=== PATIENT | male | born 1970 | race Hispanic/Latino ===

== ENCOUNTER 2017-03-17 23:29 | Inpatient (IN) | payer MEDICARE, OTHER ==
[2017-03-18 00:32] LABS: BASO % 0.5 % (0.0-2.0); EOS # 0.1 K/uL (0.0-0.7); HEMATOCRIT 39.6 % (35.0-51.0); LYMPH # 2.2 K/uL (1.0-4.3); MEAN CELL VOLUME 82.1 fL (80.0-94.0); MEAN CORPUSCULAR HGB CONC 34.1 g/dL (33.0-37.0); MONO # 0.4 K/uL (0.0-0.8); MONO % 5.7 % (0.0-10.0); RED CELL DISTRIBUTION WIDTH 12.9 % (11.5-14.5); WHITE BLOOD COUNT 6.6 K/uL (4.8-10.8)
[2017-03-18 00:33] LABS: RBC URINE < 1 /hpf (0-3); URINE BILIRUBIN NEGATIVE (NEGATIVE); URINE BLOOD NEGATIVE (NEGATIVE); URINE COLOR Straw (YELLOW); URINE GLUCOSE (UA) 3+ mg/dL (Normal); URINE KETONE NEGATIVE (NEGATIVE); URINE LEUKOCYTE ESTERASE NEG Leu/uL (Negative); URINE PROTEIN NEGATIVE (NEGATIVE); URINE UROBILINOGEN NORMAL mg/dL (0.2-1.0); WBC URINE 1 /hpf (0-5)
[2017-03-18 00:45] LABS: CHLORIDE 89 mmol/L (98-107); POTASSIUM 4.3 mmol/L (3.6-5.2); SODIUM 131 mmol/L (132-148)
[2017-03-18 00:47] LABS: BILIRUBIN,TOTAL 0.5 mg/dL (0.2-1.3); CARBON DIOXIDE 27 mmol/L (22-30); GFR AFRICAN-AMERICAN > 60
[2017-03-18 00:48] LABS: ALB/GLOB RATIO 1.3 (1.0-2.1); ALKALINE PHOSPHATASE 107 U/L (38-126); ALT/SGPT 17 U/L (21-72); AST/SGOT 17 U/L (17-59); BLOOD UREA NITROGEN 14 mg/dL (9-20); CALCIUM 8.9 mg/dl (8.6-10.4); TOTAL PROTEIN 7.5 g/dL (6.3-8.3)
[2017-03-18 00:49] LABS: ALCOHOL SERUM < 10 mg/dl (0-10)
[2017-03-18 01:08] LABS: GLUCOSE,RANDOM 541 mg/dL (75-110)
[2017-03-18] MEDS ORDERED: Sodium Chloride 0.9% 1,000 ML IV ONE ×3 (01:15→04:40)
[2017-03-18] MEDS ORDERED: (Novolin R) Insulin Human Regular 100 units/ml vial IV ONE ×2 (01:16→03:46)
[2017-03-18] MEDS ORDERED: (Novolin R) Insulin Human Regular 100 units/ml vial ONE ×2 (01:27→03:57)
[2017-03-18] MEDS ORDERED: Sodium Chloride 0.9% 1,000 ML ONE ×3 (01:27→04:54)
--- NOTE | 2017-03-18 02:52 | C.PDOC ---
History Of Present Illness 47 year old male presents to the ER for detox from opiates. Patient is prescreened for detox, reports last use of pills was 2 days ago and last heroin use was earlier today. Patient has no physical complaint at this time. Time Seen by Provider: 03/18/17 00:03 Chief Complaint (Nursing): Psychiatric Evaluation History Per: Patient History/Exam Limitations: no limitations Onset/Duration Of Symptoms: Other (Asymptomatic) Suicide/Self Injury Attempted (Context): None Modifying Factor(s): Narcotics Severity: Moderate Past Medical History Reviewed: Historical Data, Nursing Documentation, Vital Signs Vital Signs: Last Vital Signs Temp 98.2 F 03/18/17 20:44 Pulse 74 03/18/17 22:06 Resp 18 03/18/17 20:44 BP 145/90 03/18/17 22:06 Pulse Ox 99 03/18/17 20:44 - Medical History PMH: Depression Surgical History: No Surg Hx - [facility] Procedures TETANUS TOXOID ADMINIST (06/22/02) Family History: States: No Known Family Hx - Social History Hx Alcohol Use: No Hx Substance Use: Yes - Immunization History Hx Tetanus Toxoid Vaccination: Yes (2014) Hx Influenza Vaccination: Yes (2015) Hx Pneumococcal Vaccination: No Review Of Systems Except As Marked, All Systems Reviewed And Found Negative. Constitutional: Negative for: Fever, Chills Cardiovascular: Negative for: Chest Pain, Palpitations Respiratory: Negative for: Cough, Shortness of Breath Gastrointestinal: Negative for: Nausea, Vomiting, Abdominal Pain Psych: Negative for: Suicidal ideation Physical Exam - Physical Exam Appears: Well, Non-toxic Skin: Normal Color, Warm, Dry Head: Normacephalic Eye(s): bilateral: Normal Inspection Oral Mucosa: Moist Cardiovascular: Rhythm Regular Respiratory: Normal Breath Sounds, No Rales, No Rhonchi, No Wheezing Gastrointestinal/Abdominal: Normal Exam, Bowel Sounds, Soft, No Tenderness Neurological/Psych: Oriented x3 ED Course And Treatment - Laboratory Results Result Diagrams: 03/18/17 00:28 03/18/17 00:28 O2 Sat by Pulse Oximetry: 97 (Room air) Pulse Ox Interpretation: Normal Progress Note: Blood work, UA, UDS ordered and reviewed. Patient's blood sugar noted to be elevated. He admits to history of diabetes in his family, does not take any diabetic medications himself. He deneis polyuria/polydipsia/weight loss/abdominal pain. IV NS boluses and IV insulin given. 5:15am- Patient's blood sugar steadily improving with fluids and insulin. He is medically cleared. Blood work shows no evidence of acidosis or dehydration . Recommend medicine consult during detox admisson, and placing patient on insulin sliding scale. Patient accepted by Dr. Muse for opiate detox admission. Critical Care Time - Critical Care Note Total Time (in mins): 35 Documented critical care: time excludes all time spent performing seperately billable procedures. Disposition - Disposition Disposition: HOSPITALIZED Disposition Time: 05:43 Condition: STABLE - Clinical Impression Clinical Impression: Opiate dependence, Hyperglycemia - Scribe Statement The provider has reviewed the documentation as recorded by the Scribe Lane Taylor All medical record entries made by the Scribe were at my direction and personally dictated by me. I have reviewed the chart and agree that the record accurately reflects my personal performance of the history, physical exam, medical decision making, and the department course for this patient. I have also personally directed, reviewed, and agree with the discharge instructions and disposition. Decision To Admit - Pt Status Changed To: Hospital Disposition Of: Inpatient - Admit Certification Admit to Inpatient:: After my assessment, the patient will require hospitalization for at least two midnights. This is because of the severity of symptoms shown, intensity of services needed, and/or the medical risk in this patient being treated as an outpatient. - InPatient: Physician Admission Certification: I certify that this patient requires 2 or more midnights of care for the following reason:: see notes - . Bed Request Type: Detox Admitting Physician: Rosa Muse Patient Diagnosis: Opiate dependence
[2017-03-18] MEDS ORDERED: Aluminum Hydroxide/Magnesium Hydroxide Susp (30 mL) PO PRN (08:09)
[2017-03-18] MEDS ORDERED: Benzocaine/Menthol (Cepacol) Lozenge PO PRN (08:09)
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
[2017-03-18] MEDS ORDERED: (Novolog) Insulin Aspart, Recombinant 100 u/ml 10 ml vial SC SCH (13:52)
[2017-03-18] MEDS: (Novolog) Insulin Aspart, Recombinant 100 u/ml 10 ml vial SC SCH ×2 (17:11→21:09)
[2017-03-18] MEDS: Insulin Detemir 100 units/ml Vial (Levemir) SC SCH (21:05)
[2017-03-18] MEDS ORDERED: Insulin Detemir 100 units/ml Vial (Levemir) SC SCH (22:00)
[2017-03-19] MEDS: (Novolog) Insulin Aspart, Recombinant 100 u/ml 10 ml vial SC SCH ×3 (08:25→17:34)
[2017-03-19 08:41] LABS: HEMATOCRIT 35.7 % (35.0-51.0); MEAN CELL VOLUME 81.3 fL (80.0-94.0); MEAN CORPUSCULAR HEMOGLOBIN 28.6 pg (27.0-31.0); MEAN CORPUSCULAR HGB CONC 35.1 g/dL (33.0-37.0); MEAN PLATELET VOLUME 9.4 fL (7.2-11.7); RED CELL DISTRIBUTION WIDTH 13.3 % (11.5-14.5); WHITE BLOOD COUNT 4.9 K/uL (4.8-10.8)
--- NOTE | 2017-03-19 08:53 | PCM.PYCHPN ---
Psychiatric Progress Note - Psychiatric Progress Note Patient seen today, length of contact: 16 min Patient Chief Complaint: I am experiencing withdrawal symptoms. Problems Identified/Issues Discussed: Patient seen and evaluated, chart reviewed and discussed with the nurse. The patient reports depressed and irritable mood but still reports withdrawal symptoms including shakes, anxiety, cramps, joints pains and sweating. Patient has something anxiety and denies any suicidal ideation or homicidal ideation. Patient is taking medications and denies any side effects. Supportive therapy and psychoeducation were given. Medication Change: Yes (Methadone taper, Start Zoloft) Medical Record Reviewed: Yes Mental Status Examination - Cognitive Function Orientation: Person, Place, Situation, Time Memory: Intact Attention: WNL Concentration: Poor Association: WNL Fund of Knowledge: Poor - Mood Mood: Depressed, Anxious - Affect Affect: Constricted, Depressed - Speech Speech: Soft - Formal Thought Process Formal Thought Process: No Impairment - Suicidal Ideation Suicidal Ideation: No - Homicidal Ideation Homicidal Ideation: No Goal/Treatment Plan - Goal/Treatment Plan Need for Continued Stay: Discharge may exacerbated symptoms, Severe functional impairment Progress Toward Problem(s) and Goals/Treatment Plan: Opioid use disorder severe CBT Psychoeducation Supportive therapy, individual therapy Use [place] for abstinence Opioid withdrawal CBT Psychoeducation Supportive therapy, individual therapy Clonidine when necessary Methadone taper Depressive disorder CBT Psychoeducation Supportive therapy, group therapy, individual therapy Neurontin 100 mg by mouth 3 times a day Trazodone 50 mg by mouth daily at bedtime Zoloft 50 mg PO Daily - Smoking Cessation Smoking Cessation Initiated: No
[2017-03-19 08:55] LABS: CHLORIDE 98 mmol/L (98-107); SODIUM 135 mmol/L (132-148)
[2017-03-19 08:57] LABS: AST/SGOT 16 U/L (17-59); BILIRUBIN,TOTAL 0.7 mg/dL (0.2-1.3); CARBON DIOXIDE 23 mmol/L (22-30); GFR AFRICAN-AMERICAN > 60
[2017-03-19 08:58] LABS: ALB/GLOB RATIO 1.2 (1.0-2.1); ALKALINE PHOSPHATASE 98 U/L (38-126); ALT/SGPT 19 U/L (21-72); BLOOD UREA NITROGEN 9 mg/dL (9-20); CALCIUM 8.6 mg/dl (8.6-10.4); GLUCOSE,RANDOM 296 mg/dL (75-110); TOTAL PROTEIN 6.9 g/dL (6.3-8.3)
[2017-03-19] MEDS: Insulin Detemir 100 units/ml Vial (Levemir) SC SCH ×2 (09:19→21:36)
[2017-03-20] MEDS: (Novolog) Insulin Aspart, Recombinant 100 u/ml 10 ml vial SC SCH ×4 (09:11→21:09)
[2017-03-20] MEDS: Insulin Detemir 100 units/ml Vial (Levemir) SC SCH ×2 (09:12→21:10)
--- NOTE | 2017-03-20 15:57 | PCM.PYCHPN ---
Psychiatric Progress Note - Psychiatric Progress Note Patient seen today, length of contact: 16 min Patient Chief Complaint: I am experiencing withdrawal symptoms. Problems Identified/Issues Discussed: Patient was seen and evaluated. Chart reviewed and discussed with the nurse. Pt states that his mood is alright although he is complaining of lower back pain which he rates a 10/10. Patient was given motrin for the pain however he reports that it did not help. He did not sleep well due to to pain and currently feels nauseous and has a poor appetite. Patient was recently diagnosed with DMII and his recent hemoglobin A1C was 13.4. He is currently on the insulin sliding scale. Patient denies suicidal or homicidal ideations, persecutory delusions or visual and auditory hallucinations. Patient is taking medication and denies any side effect. Pt has no plan after discharge. Medication Change: Yes (Methadone taper, Start Zoloft) Medical Record Reviewed: Yes Mental Status Examination - Cognitive Function Orientation: Person, Place, Situation, Time Memory: Intact Attention: WNL Concentration: Poor Association: WNL Fund of Knowledge: Poor - Mood Mood: Depressed, Anxious - Affect Affect: Constricted, Depressed - Speech Speech: Soft - Formal Thought Process Formal Thought Process: No Impairment - Suicidal Ideation Suicidal Ideation: No - Homicidal Ideation Homicidal Ideation: No Goal/Treatment Plan - Goal/Treatment Plan Need for Continued Stay: Discharge may exacerbated symptoms, Severe functional impairment Progress Toward Problem(s) and Goals/Treatment Plan: Opioid use disorder severe CBT Psychoeducation Supportive therapy, individual therapy Use [place] for abstinence Opioid withdrawal CBT Psychoeducation Supportive therapy, individual therapy Clonidine when necessary Methadone taper Depressive disorder CBT Psychoeducation Supportive therapy, group therapy, individual therapy Neurontin 100 mg by mouth 3 times a day Trazodone 50 mg by mouth daily at bedtime Zoloft 50 mg PO Daily
[2017-03-21] MEDS: (Novolog) Insulin Aspart, Recombinant 100 u/ml 10 ml vial SC SCH ×4 (08:11→21:19)
[2017-03-21] MEDS: Insulin Detemir 100 units/ml Vial (Levemir) SC SCH ×2 (09:11→21:20)
--- NOTE | 2017-03-21 16:08 | PCM.PYCHPN ---
Psychiatric Progress Note - Psychiatric Progress Note Patient seen today, length of contact: 16 min Patient Chief Complaint: I am experiencing withdrawal symptoms. Problems Identified/Issues Discussed: Pt seen and evaluated. Chart reviewed and discussed with the nurse. Pt is still having withdrawal symptoms with little improvement. He complains of nausea, dry heaving, back pain and restless legs. He denies homicidal or suicidal ideations, visual or auditory hallucinations or persecutory delusions. Pt also denies any medication side effects Extra dose of methadone 5 mg given due to ongoing sxs Gabapentin increased, seroquel started. Medication Change: Yes (Methadone taper, Start Zoloft) Medical Record Reviewed: Yes Mental Status Examination - Cognitive Function Orientation: Person, Place, Situation, Time Memory: Intact Attention: WNL Concentration: Poor Association: WNL Fund of Knowledge: Poor - Mood Mood: Depressed, Anxious - Affect Affect: Constricted, Depressed - Speech Speech: Soft - Formal Thought Process Formal Thought Process: No Impairment - Suicidal Ideation Suicidal Ideation: No - Homicidal Ideation Homicidal Ideation: No Goal/Treatment Plan - Goal/Treatment Plan Need for Continued Stay: Discharge may exacerbated symptoms, Severe functional impairment Progress Toward Problem(s) and Goals/Treatment Plan: Opioid use disorder severe CBT Psychoeducation Supportive therapy, individual therapy Use [place] for abstinence Opioid withdrawal CBT Psychoeducation Supportive therapy, individual therapy Clonidine when necessary Methadone taper Methadone 5mg PO ONCE Depressive disorder CBT Psychoeducation Supportive therapy, group therapy, individual therapy Neurontin 400 mg by mouth 3 times a day Trazodone 50 mg by mouth daily at bedtime Zoloft 50 mg PO Daily Quetiapine 100 mg PO MAHOGANY
[2017-03-22] MEDS: (Novolog) Insulin Aspart, Recombinant 100 u/ml 10 ml vial SC SCH ×4 (08:07→22:29)
[2017-03-22] MEDS: Insulin Detemir 100 units/ml Vial (Levemir) SC SCH ×2 (09:10→22:28)
--- NOTE | 2017-03-22 17:08 | PCM.PYCHPN ---
Psychiatric Progress Note - Psychiatric Progress Note Patient seen today, length of contact: 16 min Patient Chief Complaint: "Still withdrawing" Problems Identified/Issues Discussed: He is seen, chart reviewed and case discussed. Patient is improving however he is still complaining of poor sleep and back pain and now has a new complaint of abdominal pain. He denies suicidal or homicidal ideations, visual or auditory hallucinations or persecutory delusions. Pt denies medication side effects and will be going to [facility] after discharge. . Medication Change: Yes (detox changes daily) Medical Record Reviewed: Yes Mental Status Examination - Cognitive Function Orientation: Person, Place, Situation, Time Memory: Intact Attention: WNL Concentration: Poor Association: WNL Fund of Knowledge: Poor - Mood Mood: Depressed, Anxious - Affect Affect: Constricted, Depressed - Speech Speech: Soft - Formal Thought Process Formal Thought Process: No Impairment - Suicidal Ideation Suicidal Ideation: No - Homicidal Ideation Homicidal Ideation: No Goal/Treatment Plan - Goal/Treatment Plan Need for Continued Stay: Discharge may exacerbated symptoms, Severe functional impairment Progress Toward Problem(s) and Goals/Treatment Plan: Opioid use disorder severe CBT Psychoeducation Supportive therapy, individual therapy Use [place] for abstinence Opioid withdrawal CBT Psychoeducation Supportive therapy, individual therapy Clonidine when necessary Methadone taper Methadone 5mg PO ONCE Depressive disorder CBT Psychoeducation Supportive therapy, group therapy, individual therapy Neurontin 400 mg by mouth 3 times a day Trazodone 50 mg by mouth daily at bedtime Zoloft 50 mg PO Daily Quetiapine 100 mg PO MAHOGANY
[2017-03-22 20:55] VITALS: TEMP 98; O2SAT 98
[2017-03-23 05:51] VITALS: BP 140/90; RESP 18
[2017-03-23 06:19] VITALS: PULSE 77
[2017-03-23] MEDS: (Novolog) Insulin Aspart, Recombinant 100 u/ml 10 ml vial SC SCH (07:49)
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
[2017-03-23] MEDS: Insulin Detemir 100 units/ml Vial (Levemir) SC SCH (09:04)
== END 2017-03-23 10:00 | disposition home or self-care (01) | DRG 895 ==
LOC: C.ER 23:29 → C.7D 03-18 05:43
PROVIDERS: ADMIT Psychiatry & Neurology Psychiatry; ATTEND Psychiatry & Neurology Psychiatry
PROC: HZ52ZZZ Individual Psychotherapy for Substance Abuse Treatment, Cognitive-Behavioral (ICD-10-PCS; principal; 2017-03-18)
PROC: HZ59ZZZ Individual Psychotherapy for Substance Abuse Treatment, Supportive (ICD-10-PCS; 2017-03-18)
PROC: HZ56ZZZ Individual Psychotherapy for Substance Abuse Treatment, Psychoeducation (ICD-10-PCS; 2017-03-18)
PROC: HZ2ZZZZ Detoxification Services for Substance Abuse Treatment (ICD-10-PCS; 2017-03-18)
DX: F11.23 Opioid dependence with withdrawal (principal); E11.65 Type 2 diabetes mellitus with hyperglycemia; I10 Essential (primary) hypertension; F32.9 Major depressive disorder, single episode, unspecified